=== PATIENT | female | born 1965 | race Caucasian/White ===

== ENCOUNTER → 2016-11-25 | Outpatient (CLI) | payer SELFPAY ==
[~2016-11-25] MED LIST: BIOTIN2500 MCG PO; CENTRUM SILVER1 EAC3 PO; ESTRADIOL0.5 MG PO; LISINOPRIL20 MG PO; LITHIUM CARBON300 M1 PO; MELOXICAM15 MG PO; OMEPRAZOLE20 M1 PO; PROZAC PO; TEGRETOL PO; URIBEL CAPSULE1 EAC1 PO; VITAMIN B122500 MCG PO
== END | disposition home or self-care (01) ==
LOC: CBAR 12:59
DX: Z01.818 Encounter for other preprocedural examination (principal); E66.01 Morbid (severe) obesity due to excess calories
CPT/HCPCS: G0463

== ENCOUNTER → 2016-12-30 | Outpatient (CLI) | payer BC, MEDICARE ==
--- NOTE | ~2016-12-30 | CR97 ---
[facility] A Service of [facility] RADIOLOGY TEXT RESULTS PATIENT: ARACELIS EAGLE LOCATION: [facility] : 61 UNIT #: [id number] AGE: [address]: Jb Gotti MD SEX: F ORDER DR: [id number] [place], [place] [address] [id number] O MR#: [id number] Acc #: [id number] NAME: ARACELIS EAGLE : 1965 SEX: F STUDY DATE/TIME: 12/30/2016 8:59 UNIT: [facility] ROOM: STUDY DESCRIPTION: CR Esophagram Attending Physician: Jb Gotti M.D. Referring Physician: Jb Gotti M.D. Ordering Physician: Jb Gotti M.D. Primary Care Physician: Hannah Mathews D.O. MEDICAL IMAGING REPORT This report is preliminary unless electronic signature is present EXAM Single contrast barium esophagram INDICATION Preoperative examination prior to laparoscopic gastric banding surgery. TECHNIQUE Patient was administered thin barium and multiple fluoroscopic images were obtained. FINDINGS Thoracic esophagus is of normal caliber with no evidence of stricture or mass lesion. When in the prone VELIZ position, patient was noted to have some tertiary contractions with poor stripping of the esophagus. This was not evident again on the upright images. No hiatal hernia was identified. IMPRESSION 1. No hiatal hernia identified. 2. While in the prone VELIZ position, patient was noted to have some tertiary contractions with poor stripping of the esophagus. Total fluoroscopic time was 0.4 minutes and a total of 11 fluoroscopic images were obtained. Dictated by... Lisette Marquez M.D. THIS IS AN ELECTRONICALLY VERIFIED REPORT Lisette Marquez M.D. at 01/02/2017 3:55 PM AFF/rashmi TD: 01/02/2017 08:26 [facility] A Service [facility] RADIOLOGY TEXT RESULTS PATIENT: ARACELIS EAGLE LOCATION: [facility] #: [id number] : 61 UNIT #: [id number] AGE: [address]: Jb Gotti MD SEX: F ORDER DR: LALITO #: [id number] MEDICAL IMAGING REPORT Page 1 of 1 COPY
--- NOTE | ~2016-12-30 | EKG ---
PATIENT: ARACELIS EAGLE UNIT #: [id number] Ventricular Rate: 78 BPM Atrial Rate: 78 BPM P-R Interval: 164 ms QRS Duration: 82 ms Q-T Interval: 386 ms QTC Calculation(Bezet): 440 ms P [place]: -2 degrees Calculated R [place]: -10 degrees Calculated T [place]: 19 degrees Diagnosis Line: Normal sinus rhythm Diagnosis Line: Normal ECG Diagnosis Line: No previous ECGs available Diagnosis Line: Confirmed by OLGA ELIZONDO MD ([id number]) on Diagnosis Line: 12/31/2016 2:53:44 PM INTERPRETING MD: APOLINAR
--- NOTE | ~2016-12-30 | CR63 ---
[facility] A Service of [facility] RADIOLOGY TEXT RESULTS PATIENT: ARACELIS EAGLE LOCATION: [facility] : 61 UNIT #: [id number] AGE: [address]: Jb Gotti MD SEX: F ORDER DR: [id number] [facility] [address] [place], [place] [address] [id number] O MR#: [id number] Acc #: [id number] NAME: ARACELIS EAGLE : 1965 SEX: F STUDY DATE/TIME: 12/30/2016 7:44 UNIT: [facility] ROOM: STUDY DESCRIPTION: CR Chest 2 View Attending Physician: Jb Gotti M.D. Referring Physician: Jb Gotti M.D. Ordering Physician: Jb Gotti M.D. Primary Care Physician: Hannah Mathews D.O. MEDICAL IMAGING REPORT This report is preliminary unless electronic signature is present EXAM Chest PA and lateral, 12/30/2016 HISTORY Morbid obesity. Preop laparoscopic gastric banding. Shortness of breath on exertion today. Benign essential hypertension. FINDINGS PA and lateral examination of the chest upright shows a good expansion of the parenchyma with a normal distribution of the pulmonary vascularity. There is no indication of congestion, effusion, infiltrate, tumor, or nodular density. The pleural reflections and diaphragmatic contours are normal. The cardiac silhouette and mediastinal anatomy is within normal limits. IMPRESSION Normal chest. Dictated by... Freddie Oakes M.D. THIS IS AN ELECTRONICALLY VERIFIED REPORT Freddie Oakes M.D. at 12/30/2016 5:04 PM DENISSE/twila TD: 12/30/2016 12:59 JOB #: [id number] MEDICAL IMAGING REPORT Page 1 of 1 COPY
[2016-12-30 09:02] LABS: HEMATOCRIT 37.3 % (35.0-45.0); HEMOGLOBIN 12.6 gm/dL (12.0-16.0); MEAN CELL VOLUME 94.2 FL (83-96); MEAN CORPUSCULAR HEMOGLOBIN 31.9 PG (28-34); MEAN CORPUSCULAR HGB CONC 33.9 g/dL (30-36); MEAN PLATELET VOLUME 7.7 FL (6.5-11.5); RED BLOOD COUNT 3.96 X10e (3.90-5.30); RED CELL DISTRIBUTION WIDTH 12.5 % (11.0-15.5); WHITE BLOOD COUNT 7.6 X10e3 (4.0-10.5)
[2016-12-30 10:26] LABS: ALBUMIN SERUM 4.7 g/dL (3.5-5.0); BILIRUBIN,TOTAL 0.8 mg/dL (0.2-2.0); BUN/CREATININE RATIO 18.75; CALCIUM SERUM 11.6 mg/dL (8.4-10.2); CREATININE SERUM 0.8 mg/dL (0.6-1.4); GLOM FILT RATE Estimated 84.2 mL/min (>60); POTASSIUM 4.4 mmol/L (3.5-5.1); PROTEIN TOTAL SERUM 7.6 g/dL (6.0-8.3)
== END | disposition home or self-care (01) ==
LOC: CRAD 07:37 → EDSTATUS 08:00 → CAMB 08:30 → CSUR 08:30
PROVIDERS: Surgery
DX: Z01.818 Encounter for other preprocedural examination (principal); E66.01 Morbid (severe) obesity due to excess calories; K22.8 Other specified diseases of esophagus
CPT/HCPCS: 36415; 71020; 74220; 80053; 80061; 84443; 85027; 93005

== ENCOUNTER → 2017-01-11 | Day surgery (SDC) | payer BC, MEDICARE ==
--- NOTE | ~2017-01-11 | CR7 ---
[facility] A Service of [facility] RADIOLOGY TEXT RESULTS PATIENT: ARACELIS EAGLE LOCATION: [facility] : 61 UNIT #: [id number] AGE: [address]: Jb Gotti MD SEX: F ORDER DR: [id number] [facility] [address] [place], [place] [address] [id number] O MR#: [id number] Acc #: [id number] NAME: ARACELIS EAGLE : 1965 SEX: F STUDY DATE/TIME: 01/11/2017 9:09 UNIT: [facility] ROOM: STUDY DESCRIPTION: CR Abdomen Single AP View Attending Physician: Jb Gotti M.D. Ordering Physician: Jb Gotti M.D. Primary Care Physician: Hannah Mathews D.O. MEDICAL IMAGING REPORT This report is preliminary unless electronic signature is present EXAM AP radiograph of the abdomen, 01/11/2017. HISTORY Postop Lap-Band, PACU front. FINDINGS AP radiograph of the abdomen presented. Status post Lap-Band placement. Band component at anticipated level of gastroesophageal junction, based on esophagram, 12/30/2016. Band component 72-degrees from vertical. Catheter component radiographically intact. Port component implanted over midline, low abdomen. No free air. Bowel gas pattern normal in visualized extent. The lung bases clear. No acute-appearing bony abnormality. Dictated by... Jb Blanco M.D. THIS IS AN ELECTRONICALLY VERIFIED REPORT Jb Blanco M.D. at 01/12/2017 4:47 PM JENNIFER/twila TD: 01/11/2017 14:10 JOB #: [id number] MEDICAL IMAGING REPORT Page 1 of 1 COPY
--- NOTE | ~2017-01-11 | OR ---
Unit #: [id number] #: [id number] Patient: ARACELIS EAGLE [id number] [address] [address] [id number] O MR#: [id number] NAME: ARACELIS EAGLE ROOM: Date of Procedure: 01/11/2017 Admission Date: 01/11/2017 Surgeon: Jb Gotti M.D. : 1965 Attending Physician: Jb Gotti M.D. Primary Care Physician: Hannah Mathews D.O. OPERATIVE REPORT PREOPERATIVE DIAGNOSIS Chronic morbid obesity with BMI of 35. POSTOPERATIVE DIAGNOSES 1. Chronic morbid obesity with BMI of 35. 2. Paraesophageal hiatal hernia. PROCEDURES PERFORMED 1. Laparoscopic adjustable gastric band. 2. Laparoscopic paraesophageal hiatal hernia repair. ASSISTANT Alejandro Levin M.D. ANESTHESIA General endotracheal anesthesia. ESTIMATED BLOOD LOSS Minimal. IV FLUIDS 800 crystalloid. COMPLICATIONS None. INDICATIONS FOR PROCEDURE The patient is a 51-year-old with chronic morbid obesity. DESCRIPTION OF PROCEDURE The patient was taken to the operating room and placed in supine position. General anesthesia was induced. The abdomen was prepped and draped. A 3-cm incision was then made left of the midline. A 10-mm Visiport was then placed intraabdominal under direct vision. The abdomen was insufflated to 15 mmHg with CO2. The patient was then placed in a steep reversed Trendelenburg. General inspection of the abdomen revealed what appeared to be a paraesophageal hernia. This was identified with a defect at the diaphragm using anterior palpation with the instrument. We then made a small incision in the subxiphoid region. A Danial liver retractor was then placed intraabdominal and used to retract the left lobe of the liver upward to further expose the paraesophageal hernia and GE junction. I then placed a 5-mm port in the right upper quadrant, a 10-mm Unit #: [id number] #: [id number] Patient: ARACELIS EAGLE port in the left upper quadrant, and another 5-mm port in the left lower quadrant. The stomach was retracted medial and downward. Upon retracting the stomach, we took down the paraesophageal ligament, exposing the right and left indigo at the paraesophageal hernia. Any hernia sac was reduced. We then repaired the paraesophageal hernia using interrupted #0 Ethibond sutures in a [id number] type fashion. This formed a snug repair to the anterior esophagus. We then retracted the stomach medially and further exposed the angle of His using Bovie electrocautery. The stomach was then retracted laterally. We then took down the hepatogastric ligament with Bovie electrocautery. This exposed the right indigo. Using blunt dissection, I created a retrogastric tunnel from this point to the angle of His. The band was then placed intraabdominal through the 10-mm port site. This was then brought through the retrogastric tunnel in a pars flaccida technique. The band was then closed anteriorly to form a 20-mL to 25-mL anterior gastric pouch. The fundus was then secured to the anterior pouch to prevent movement around the stomach using two interrupted #0 Ethibond sutures. A third suture was then used as a gathering stitch from the lesser curve to the anterior stomach, gathering and imbricating the remaining fundus of the stomach. The tubing was then brought out through the midline 10-mm port site. All ports and the Danial liver retractor were removed under direct vision with no evidence of abdominal hemorrhage. A polypropylene mesh was then secured to the posterior face of the laparoscopic band port. This was secured using #0 Ethibond suture. This was then cut to shape. The port was then connected to the tubing and placed into a subcutaneous pocket just anterior to the rectus sheath. Its position was then confirmed. All tubing was then placed intraabdominal. The wounds were then closed with interrupted 4-0 Vicryl. The patient tolerated the procedure well and was sent to the recovery room in good condition. Dictated by... Prateek Gaspar/brayan TD: 01/12/2017 11:05 JOB #: [id number] OPERATIVE REPORT Page 1 of 1 X Jb Gotti MD PROCEDURE OPERATIVE NOTE
== END | disposition home or self-care (01) ==
LOC: CSUR 06:06
DX: E66.01 Morbid (severe) obesity due to excess calories (principal); K44.9 Diaphragmatic hernia without obstruction or gangrene; K21.9 Gastro-esophageal reflux disease without esophagitis; M19.90 Unspecified osteoarthritis, unspecified site; I10 Essential (primary) hypertension; E78.00 Pure hypercholesterolemia, unspecified; E78.5 Hyperlipidemia, unspecified; E83.52 Hypercalcemia; F31.9 Bipolar disorder, unspecified; Z68.35 Body mass index [BMI] 35.0-35.9, adult; Z86.010 Personal history of colon polyps; Z87.442 Personal history of urinary calculi; Z80.1 Family history of malignant neoplasm of trachea, bronchus and lung; Z72.4 Inappropriate diet and eating habits; Z88.2 Allergy status to sulfonamides; Z88.6 Allergy status to analgesic agent; Z91.040 Latex allergy status; Z91.048 Other nonmedicinal substance allergy status; Z79.1 Long term (current) use of non-steroidal anti-inflammatories (NSAID); Z98.51 Tubal ligation status; Z79.899 Other long term (current) drug therapy; Z98.1 Arthrodesis status; Z96.659 Presence of unspecified artificial knee joint; Z95.0 Presence of cardiac pacemaker; Z90.710 Acquired absence of both cervix and uterus; Z90.721 Acquired absence of ovaries, unilateral; Z98.890 Other specified postprocedural states
CPT/HCPCS: 74000; C1781; J0330; J0690; J1650; J1885; J2250; J2405; J2710; J3010